=== PATIENT | female | born 1935 | race Asian ===

== ENCOUNTER 2016-10-23 20:47 | Inpatient (IN) | payer MEDICARE, OTHER ==
[~2016-10-23] VITALS: Ht 157.5 cm; Wt 40.8 kg
[~2016-10-23 20:47] MED LIST: ACET-868 PO; ARGI1POW13 PO; ASCO500T8 PO; ASPI81TA2 PO; BENEFIBER PO; BISA10SU8 RC; CALC-34 PO; CARV3.12 PO; CHOL100044 PO; MAGN400O6 PO; METH1TAB30 PO; METH5TAB6 PO; NA P133E RC; OMEP10CA4 PO; SIMV20TA6 PO
--- NOTE | 2016-10-23 20:55 | NUR ---
TO BED 7 AN 81 YO FEMALE PT [facility], PT FROM [facility], PT SENT HERE FOR FAILURE TO THRIVE. PER EMS PATIENT HAS NOT BEEN EATING, NO APPETITE. UPON ARRIVAL TO ER, PATIENT IS NONVERBAL, DOES NOT OPEN EYES, DOES NOT FOLLOW COMMANDS, WITHDRAWS FROM LIGHT PAIN. SINUS TACHY ON THE MONITOR AT 110-120'S. WITH SHEPARD CATH DRAINING SMALL AMOUT OF CLOUDY URINE. AFEBRILE. GOWNED. COMFORT AND SAFETY MEASURES INITIATED. AWAITING FOR ER MD GONSALES.
--- NOTE | 2016-10-23 20:56 | NUR ---
DR LEWIS AT BEDSIDE FOR EVAL.
--- NOTE | 2016-10-23 20:59 | NUR ---
HOUSING PROJECT MANAGER AT BEDSIDE FOR CXR.
[2016-10-23] MEDS ORDERED: IV NS 0.9% 500 ML BAG IV ONE (21:00)
--- NOTE | 2016-10-23 21:00 | NUR ---
PER DR JOSHUA ROLLE TO INSERT IV ACCESS ON THE LOWER EXTREMITY THUS STARTED A SALINE LOCK ON THE RIGHT ANKLE G18, BLOOD DRAWN AND SENT TO LAB.
[2016-10-23 21:11] LABS: BASOPHILS # (AUTO) 0.1 /CMM (0.0-0.2); BASOPHILS % (AUTO) 0.5 % (0.0-2.0); EOSINOPHILS % (AUTO) 0.2 % (0.0-6.0); HEMATOCRIT 41 % (33-45); HEMOGLOBIN 12.7 g/dL (11.5-14.8); LYMPHOCYTES # (AUTO) 2.6 /CMM (0.8-4.8); LYMPHOCYTES % (AUTO) 18.1 % (20.0-44.0); MEAN CORPUSCULAR HEMOGLOBIN 27 PG (26.0-33.0); MEAN CORPUSCULAR HGB CONC 31 g/dl (31.0-36.0); MEAN CORPUSCULAR VOLUME 86 fL (82-100); MONOCYTES # (AUTO) 1.1 /CMM (0.1-1.30); MONOCYTES % (AUTO) 7.6 % (2.0-12.0); NEUTROPHILS # (AUTO) 10.6 /CMM (1.8-8.9); NEUTROPHILS % (AUTO) 73.6 % (43.0-81.0); PLATELET COUNT (AUTO) 302 /CMM (150-450); RDW COEFFICIENT OF VARIATION 15.7 (11.5-15.0); RED BLOOD CELL COUNT(AUTO) 4.72 MIL/uL (4.0-5.2); WHITE BLOOD COUNT (AUTO) 14.4 K/uL (4.3-11.0)
--- NOTE | 2016-10-23 21:14 | NUR ---
PATIENT ASSIGNED TO MS [id number]
[2016-10-23 21:17] LABS: APPEARANCE,URINE Cloudy (CLEAR); BILIRUBIN,URINE Negative (NEGATIVE); BLOOD, URINE Large Ery/uL (NEGATIVE); COLOR,URINE Dark (YELLOW); KETONES,URINE Negative (NEGATIVE); LEUKOCYTE ESTERASE ,URINE Large (NEGATIVE); NITRITE, URINE Negative (NEGATIVE); PROTEIN,URINE >=300 mg/dl (NEGATIVE); UGLUCOSE Negative (NEGATIVE); UROBILINOGEN,URINE 0.2 EU/dL (0.2)
[2016-10-23 21:25] LABS: ALANINE AMINOTRANSFERASE 20 U/L (12-78); ALKALINE PHOSPHATASE 65 U/L (46-116); ASPARTATE AMINOTRANSFERASE 20 U/L (15-37); BILIRUBIN,DIRECT 0.1 mg/dL (0.0-0.2); BILIRUBIN,TOTAL 0.4 mg/dL (0.2-1.0); CALCIUM, SERUM 9.3 mg/dL (8.5-10.1); CARBON DIOXIDE 25 mmol/L (21-32); CHLORIDE 124 mmol/L (98-107); CREATININE 1.3 mg/dL (0.6-1.3); GLUCOSE 153 mg/dL (74-106); LIPASE 144 U/L (73-393); TOTAL PROTEIN, SERUM 9.8 g/dL (6.4-8.2); UREA NITROGEN, BLOOD 79 mg/dL (7-18)
[2016-10-23 21:26] LABS: SERUM AMMONIA 25 umol/L (11-32)
[2016-10-23 21:28] LABS: SODIUM SERUM 158 mmol/L (136-145)
[2016-10-23 21:31] LABS: BACTERIA,URINE 3+ /HPF (None Seen); RBC,URINE TOO NUMEROUS TO COUN /HPF (0-2); SQUAMOUS EPITHELIAL CELL,UR Few /HPF (None Seen); WBC,URINE TOO NUMEROUS TO COUN /HPF (0-3)
--- NOTE | 2016-10-23 21:51 | NUR ---
[facility] PAGED, FUNMI PLEITEZ CERTIFIED SOLID WASTE FACILITY OPERATOR
[2016-10-23] MEDS ORDERED: AZTREONAM 1 G VIAL ONE (21:53)
[2016-10-23] MEDS ORDERED: AMLO5TAB2 PO (21:58)
[2016-10-23] MEDS ORDERED: ATOR20TA PO (21:58)
[2016-10-23] MEDS ORDERED: AZTREONAM 1 G in IV NS 0.9% 100 ML IV ONE (22:00)
--- NOTE | 2016-10-23 22:00 | NUR ---
Report given to Arina VILLA for MS admission and bud.
--- NOTE | 2016-10-23 22:17 | NUR ---
Transported patient to [facility] floor rm [id number], no incident. Daughter at bedside while patient in er.
[2016-10-23] MEDS ORDERED: IV D5W 1,000 ML IV PRN (22:48)
[2016-10-23] MEDS ORDERED: ACETAMINOPHEN 325 MG TABLET PO PRN (23:00)
[2016-10-23] MEDS ORDERED: ONDANSETRON HCL/PF 4 MG/2 ML VIAL IVP PRN (23:00)
[2016-10-23] MEDS ORDERED: MAGNESIUM HYDROXIDE 30 ML UDC PO PRN ×2 (23:00→23:30)
[2016-10-23] MEDS ORDERED: MAG HYDROX/AL HYDROX/SIMETH 30 ML UDC PO PRN (23:00)
[2016-10-23 23:30] VITALS: BP 128/72
[2016-10-23] MEDS ORDERED: NA PHOS,M-B/NA PHOS,DI-BA 1 EA ENEMA RC PRN (23:30)
[2016-10-23] MEDS ORDERED: BISACODYL SUPP (10 MG) 10 MG/SUPP.RECT SUPP.RECT RC PRN (23:30)
[2016-10-24] MEDS ORDERED: AZTREONAM 1 G VIAL ONE (04:04)
[2016-10-24] MEDS ORDERED: AZTREONAM 1 G VIAL IM SCH (06:00)
--- NOTE | 2016-10-24 06:30 | NUR ---
MS/RN NOTES PATIENT IN STABLE CONDITION. NO APPARENT DISTRESS NOTED. VITAL SIGNS STABLE. ADMINISTERED ALL MEDS ORDERED. WITH IVF INFUSING WELL. ALL NEEDS ATTENDED. WILL CONTINUE PLAN OF CARE,
[2016-10-24 06:51] LABS: HEMATOCRIT 42 % (33-45); LYMPHOCYTES # (AUTO) 1.6 /CMM (0.8-4.8); LYMPHOCYTES % (AUTO) 10.9 % (20.0-44.0); MEAN CORPUSCULAR HEMOGLOBIN 28 PG (26.0-33.0); MEAN CORPUSCULAR HGB CONC 31 g/dl (31.0-36.0); MEAN CORPUSCULAR VOLUME 89 fL (82-100); MONOCYTES # (AUTO) 0.3 /CMM (0.1-1.30); MONOCYTES % (AUTO) 2.2 % (2.0-12.0); NEUTROPHILS # (AUTO) 12.8 /CMM (1.8-8.9); NEUTROPHILS % (AUTO) 86.9 % (43.0-81.0); PLATELET COUNT (AUTO) 252 /CMM (150-450); RDW COEFFICIENT OF VARIATION 17.1 (11.5-15.0); RED BLOOD CELL COUNT(AUTO) 4.72 MIL/uL (4.0-5.2); WHITE BLOOD COUNT (AUTO) 14.7 K/uL (4.3-11.0)
[2016-10-24 07:05] LABS: CALCIUM, SERUM 8.5 mg/dL (8.5-10.1); CARBON DIOXIDE 22 mmol/L (21-32); CHLORIDE 122 mmol/L (98-107); GLUCOSE 231 mg/dL (74-106); PHOSPHORUS 3.6 mg/dL (2.5-4.9); POTASSIUM 5.1 mmol/L (3.5-5.1); UREA NITROGEN, BLOOD 68 mg/dL (7-18)
--- NOTE | 2016-10-24 07:40 | NUR ---
RN MS OPENING NOTES RECEIVED PATIENT IN BED, ASLEEP, HOB ELEVATED, NO SOB OR DISTRESS NOTED. A/O X 1 NON VERBAL. IV INTACT AND PATENT. PATIENT ON O2 3 LPM NC AND TOLERATED WELL. KEEP PATIENT CLEAN AND COMFORTABLE IN BED, CALL LIGHT WITHIN PATIENT REACH, WILL CONTINUE TO MONITOR ACCORDINGLY.
[2016-10-24 08:00] VITALS: BP 150/48
[2016-10-24] MEDS: PANTOPRAZOLE 40 MG TABLET.DR PO SCH (08:34)
[2016-10-24 08:47] LABS: SODIUM SERUM 157 mmol/L (136-145)
[2016-10-24] MEDS: CARVEDILOL 3.125 MG TABLET PO SCH ×2 (09:00→20:34)
[2016-10-24] MEDS: ATORVASTATIN 10 MG TABLET PO SCH (09:00)
[2016-10-24] MEDS: BENEFIBER 4 GM 1 EA PACKET PO SCH ×3 (09:00→17:00)
[2016-10-24] MEDS: ASPIRIN 81 MG TAB.CHEW PO SCH (09:00)
[2016-10-24] MEDS: ASCORBIC ACID 500 MG TABLET PO SCH ×2 (09:00→17:00)
[2016-10-24] MEDS: AMLODIPINE BESYLATE 5 MG TABLET PO SCH (09:00)
[2016-10-24] MEDS: CHOLECALCIFEROL 1,000 UNIT TABLET (VIT D3) PO SCH (09:00)
[2016-10-24] MEDS ORDERED: Medication Not On Formulary EA (Arginine/Ascorbate Sod/Vite AC (Arginaid Powder) 1 EACH) PO SCH (09:00)
[2016-10-24] MEDS: CALCIUM CARB 250MG /VITAMIN D 1 UDTAB PO SCH (09:00)
[2016-10-24] MEDS: METHIMAZOLE (5MG) 5 MG TABLET PO SCH (09:00)
--- NOTE | 2016-10-24 09:30 | NUR ---
RN NOTES CRITICAL LAB SODIUM WAS REPORTED TO OPAL GIBBS NP.
--- NOTE | 2016-10-24 10:45 | NUR ---
RN NOTES I CALLED [employer] TO ASK FOR SPECIAL MATTRESS.
[2016-10-24] MEDS ORDERED: FEE PK DOSING 1 MIN EA MC ONE (12:40)
[2016-10-24] MEDS: AZTREONAM 1 G in IV NS 0.9% 100 ML IV SCH ×2 (12:56→20:01)
[2016-10-24] MEDS: IV D5/0.45 NACL 1,000 ML IV PRN (12:57)
[2016-10-24] MEDS: VANCOMYCIN 500 MG in IV D5W 100 ML IV SCH (14:18)
[2016-10-24] MEDS: HYDROGEL DRESSING 90 GM TUBE TP SCH (14:19)
[2016-10-24 15:34] LABS: CHOLESTEROL 168 mg/dL (<200); HDL CHOLESTEROL 28 mg/dL (40-60); LDL 117 mg/dL (0-99); THYROID STIMULATING HORMONE 0.009 uIU/mL (0.358-3.74); TRIGLYCERIDES 156 mg/dL (30-150)
[2016-10-24 16:00] VITALS: BP 112/58
--- NOTE | 2016-10-24 16:35 | NUR ---
RN NOTES I CALLED [employer] AND SPOKE TO FIGUEROA AND SHE SAID THAT THEY DO NOT HAVE THE SPECIAL MATTRESS AT THIS MOMENT.
--- NOTE | 2016-10-24 19:38 | NUR ---
MS RN OPENING NOTES: RECEIVED PT IN BED, ASLEEP, WITH HOB ELEVATED. PT IS NONVERBAL AND IS ON 3LPM VIA NC AND IS TOLERATING WELL. PT IS A/OX 1. IV IS ON R ANKLE AND IS PATENT AND INTACT AND BEING INFUSED WITH D5 1/2 NS AT 100ML/HR. CALL LIGHT WITHIN PT'S REACH. BED KEPT IN LOW, LOCKED POSITION, AND SIDE RAILS X 2 UP. WILL CONTINUE TO MONITOR PT.
--- NOTE | 2016-10-24 19:38 | NUR ---
RN NOTES ALL NEEDS PROVIDED, ATTENDED, AND ANTICIPATED. KEPT PATIENT CLEAN AND COMFORTABLE IN BED. CALL LIGHT WITHIN PATIENT REACH, WILL CONTINUE TO MONITOR ACCORDINGLY. ENDORSED TO NEXT SHIFT RN TO CONTINUE CARE.
[2016-10-24 20:00] VITALS: BP 134/65
[2016-10-24] MEDS ORDERED: SIMVASTATIN 20 MG TABLET PO SCH (22:00)
[2016-10-25] MEDS: VANCOMYCIN 500 MG in IV D5W 100 ML IV SCH ×2 (00:28→13:51)
[2016-10-25] MEDS: IV D5/0.45 NACL 1,000 ML IV PRN (02:59)
[2016-10-25] MEDS: AZTREONAM 1 G in IV NS 0.9% 100 ML IV SCH ×3 (04:00→21:14)
--- NOTE | 2016-10-25 06:38 | NUR ---
MS RN NOTES: DENTAL EQUIPMENT TECHNICIAN SAID SHE HAD TROUBLE OBTAINING BLOOD FROM PT D/T PT BEING HARDSTICK. SHE SAID SHE WILL TRY AGAIN LATER.
--- NOTE | 2016-10-25 06:45 | NUR ---
MS ALLEN CLOSING NOTES: ALL NEEDS WERE ATTENDED AND ANTICIPATED FOR. PT IS IN BED WITH EYES OPEN AND IS NON-VERBAL AT TIMES. HOWEVER, WHEN SPOKEN TO IN TAGALOG, SHE WILL SPEAK BACK IN GARBLED TAGALOG. HOB ELEVATED. PT IS ON 3LPM VIA NC AND IS TOLERATING WELL. IV IS ON R ANKLE AND IS PATENT AND INTACT AND IS BEING INFUSED WITH D5 1/2 NS AT 100ML/HR. CALL LIGHT WITHIN PT'S REACH. BED KEPT IN LOW, LOCKED POSITION, AND SIDE RAILS X 2 UP. WILL ENDORSE TO AM NURSE FOR FILIPE. Addendum: 10/25/16 at 0648 by BRENT GONZÁLES RN SHEPARD CATH ATTACHED TO DRAINAGE BAG. SHEPARD OUTPUT WAS 300ML.
[2016-10-25 07:06] LABS: URINE SODIUM, RANDOM 7 mmol/l (40-220)
--- NOTE | 2016-10-25 07:15 | NUR ---
MS RN OPENING NOTES RECEIVED PT. FROM NIGHTSHIFT NURSE IN STABLE CONDITION. PT. IS A/O X1. PT. OPENS EYES SPONTANEOUSLY AND IS RESPONSIVE TO TOUCH. NO SOB OR SIGNS OF DISTRESS NOTED. BREATHING IS EVEN AND UNLABORED. IV PRESENT ON RIGHT ANKLE 18G INFUSING D5 1/2 NS @ 100ML/HR. PT. IS TOLERATING INFUSION WELL. NO REDNESS OR SIGNS OF INFILTRATION NOTED. TO SITE. SHEPARD CATHETER PRESENT , INTACT, AND CLEAN RAINING CLEAR YELLOW URINE. NPO STATUS MAINTAINED PER SPEECH THERAPIST ADVICE/CONSULTATION. BED IN LOW LOCKED POSITION, SIDE RAILS UP X3, CALL LIGHT WITHIN REACH. HOB ELEVATED AND LOCKED. WILL CONTINUE TO MONITOR.
[2016-10-25] MEDS: PANTOPRAZOLE 40 MG TABLET.DR PO SCH (07:30)
[2016-10-25 07:49] LABS: BASOPHILS % (AUTO) 0.1 % (0.0-2.0); EOSINOPHILS # (AUTO) 0.9 /CMM (0.0-0.7); EOSINOPHILS % (AUTO) 4.1 % (0.0-6.0); HEMATOCRIT 34 % (33-45); HEMOGLOBIN 10.6 g/dL (11.5-14.8); LYMPHOCYTES # (AUTO) 1.8 /CMM (0.8-4.8); LYMPHOCYTES % (AUTO) 8.6 % (20.0-44.0); MEAN CORPUSCULAR HEMOGLOBIN 28 PG (26.0-33.0); MEAN CORPUSCULAR HGB CONC 32 g/dl (31.0-36.0); MEAN CORPUSCULAR VOLUME 88 fL (82-100); MONOCYTES # (AUTO) 0.7 /CMM (0.1-1.30); MONOCYTES % (AUTO) 3.3 % (2.0-12.0); NEUTROPHILS # (AUTO) 17.9 /CMM (1.8-8.9); NEUTROPHILS % (AUTO) 83.9 % (43.0-81.0); PLATELET COUNT (AUTO) 195 /CMM (150-450); RED BLOOD CELL COUNT(AUTO) 3.81 MIL/uL (4.0-5.2); WHITE BLOOD COUNT (AUTO) 21.4 K/uL (4.3-11.0)
[2016-10-25 08:00] VITALS: BP_SYST 126; BP_DIAS 57; BP_DIAS 76
[2016-10-25 08:06] LABS: CALCIUM, SERUM 7.9 mg/dL (8.5-10.1); CARBON DIOXIDE 24 mmol/L (21-32); CHLORIDE 125 mmol/L (98-107); CREATININE 0.8 mg/dL (0.6-1.3); GLUCOSE 145 mg/dL (74-106); POTASSIUM 3.6 mmol/L (3.5-5.1); UREA NITROGEN, BLOOD 40 mg/dL (7-18)
[2016-10-25 08:25] LABS: SODIUM SERUM 160 mmol/L (136-145)
[2016-10-25] MEDS: BENEFIBER 4 GM 1 EA PACKET PO SCH ×2 (08:36→13:51)
[2016-10-25] MEDS: CARVEDILOL 3.125 MG TABLET PO SCH (08:36)
[2016-10-25] MEDS: ASPIRIN 81 MG TAB.CHEW PO SCH (08:36)
[2016-10-25] MEDS: ATORVASTATIN 10 MG TABLET PO SCH (08:36)
[2016-10-25] MEDS: ASCORBIC ACID 500 MG TABLET PO SCH (08:37)
[2016-10-25] MEDS: AMLODIPINE BESYLATE 5 MG TABLET PO SCH (08:37)
[2016-10-25] MEDS: CALCIUM CARB 250MG /VITAMIN D 1 UDTAB PO SCH (08:37)
[2016-10-25] MEDS: METHIMAZOLE (5MG) 5 MG TABLET PO SCH (08:37)
[2016-10-25] MEDS: CHOLECALCIFEROL 1,000 UNIT TABLET (VIT D3) PO SCH (08:38)
--- NOTE | 2016-10-25 08:40 | NUR ---
MS RN NOTES PT HAS A CRITICALLY HIGH SODIUM OF 160. OPAL THE IMPLEMENTATION COORDINATOR MADE AWARE. NO NEW ORDERS OF YET. WILL CONTINUE TO MONITOR PT. FOR S/S OF HYPERNATREMIA
[2016-10-25 09:04] LABS: BAND % (MANUAL) 7 % (0.0-5.0); EOSINOPHILS % (MANUAL) 3 % (0-4); LYMPHOCYTES % (MANUAL) 1 % (16-48); MONOCYTES % (MANUAL) 1 % (0-11.0); NEUTROPHILS % (MANUAL) 88 (42-76)
--- NOTE | 2016-10-25 09:09 | NUR ---
MS RN NOTES PT. TAKEN DOWN FOR HEAD CT WITHOUT CONTRAST
[2016-10-25 09:13] LABS: OSMOLALITY,URINE 475 mOS/kg (340-1090)
--- NOTE | 2016-10-25 09:48 | NUR ---
MS RN NOTES PT. BACK FROM CT. WILL AWAIT RESULTS
[2016-10-25] MEDS: HYDROGEL DRESSING 90 GM TUBE TP SCH (09:52)
--- NOTE | 2016-10-25 10:04 | NUR ---
MS RN NOTES OPAL THE STEAM TABLE ASSOCIATE ORDERED AND NG TUBE INSERTION. DAUGHTER JAM SCHMITT WAS CALLED TO CONSENT TO INSERTION. PER DAUGHTER " YES, PLEASE PUT IT SINCE SHE FAILED THE SWALLOW TEST AND IT'S RECOMMENDED". WILL PUT IN ORDER AND INSERT NG TUBE.
--- NOTE | 2016-10-25 10:51 | NUR ---
MS RN NOTES NG TUBE PLACEMENT 14 F NGT PLACED WITH EASE THROUGH THE RIGHT NARES USING CLEAN TECHNIQUE PER PROTOCOL. TUBE INSERTED AT 50CM. PLACEMENT CHECKED PER AUSCULTATION BY BY MYSELF, MIGEL (RN), AND OPAL THE PARTY PLANNER WITH 30CC OF AIR. PT. TOLERATED PROCEDURE WELL. STAT CHEST XR ORDERED TO CONFIRM PLACEMENT.
[2016-10-25] MEDS: IV D5W 1,000 ML IV PRN (12:14)
[2016-10-25] MEDS ORDERED: PHARMACY TO CHANGE PO MEDS TO GT/NG XX PRN (13:30)
[2016-10-25] MEDS ORDERED: MAG HYDROX/AL HYDROX/SIMETH 30 ML UDC NG PRN (14:04)
[2016-10-25] MEDS ORDERED: MAGNESIUM HYDROXIDE 30 ML UDC NG PRN ×2 (14:05)
[2016-10-25] MEDS ORDERED: ACETAMINOPHEN LIQUID 325 MG/10.1 ML UDC NG PRN (14:30)
[2016-10-25] MEDS ORDERED: ACETAMINOPHEN LIQUID 325 MG/10.1 ML UDC PO PRN (14:30)
--- NOTE | 2016-10-25 14:37 | NUR ---
MS RN NOTES PT'S NG TUBE WAS ADVANCED 3 MORE CM PER CHEST XR RESULT RECOMMENDATION. PLACEMENT VERIFIED BY AUSCULTATION
[2016-10-25 16:00] VITALS: BP 102/43
[2016-10-25] MEDS: ASCORBIC ACID 500 MG TABLET NG SCH (17:33)
[2016-10-25] MEDS: BENEFIBER 4 GM 1 EA PACKET NG SCH (17:33)
--- NOTE | 2016-10-25 18:57 | NUR ---
MS RN CLOSING NOTES PT REMAINS IN STABLE CONDITION. ALL NEEDS WERE MET DURING SHIFT AND ORDERS CARRIED OUT ACCORDINGLY. NG TUBE REMAIN IN PLACE. 300 CC FLUSH WAS GIVEN Q6HR ORDERED. PT. CONTINUES TO TOLERATE TUBE WELL. DIETARY WAS CALLED REGARDING CONSULT, BUT CRIME VICTIM SPECIALIST IS GONE FOR THE DAY. WILL FOLLOWUP IN AM. WOUND CARE WAS PROVIDED. PT. WAS KEPT CLEAN AND DRY ALL THROUGHOUT SHIFT. HOB REMAINED ELEVATED DURING SHIFT AND PT WAS REPOSITIONED Q 2HRS. ALL SAFETY PRECAUTIONS REMAIN IN PLACE. WILL ENDORSE TO NIGHTSHIFT NURSE FOR FILIPE
--- NOTE | 2016-10-25 19:30 | NUR ---
RN NOTES RECEIVED PT. SLEEPING BUT AROUSABLE TO TOUCH, F/C DRAINING CLEAR YELLOW URINE, NG-TUBE IN PLACE, TAGALOG SPEAKING, NOT IN DISTRESS, NO PAIN NOTED, NPO STATUS, SIDERAILS UPX2 CONTINUE TO MONITOR
[2016-10-25 20:00] VITALS: BP_SYST 125; BP_DIAS 55; BP_DIAS 60
[2016-10-25] MEDS: SIMVASTATIN 20 MG TABLET NG SCH (21:38)
[2016-10-25] MEDS: CARVEDILOL 3.125 MG TABLET NG SCH (21:38)
--- NOTE | 2016-10-25 22:00 | NUR ---
RN NOTES EVENING CARE RENDERED
[2016-10-26] MEDS: IV D5W 1,000 ML IV PRN (01:18)
[2016-10-26] MEDS: VANCOMYCIN 500 MG in IV D5W 100 ML IV SCH ×2 (01:19→20:12)
[2016-10-26] MEDS: AZTREONAM 1 G in IV NS 0.9% 100 ML IV SCH ×3 (04:59→21:26)
--- NOTE | 2016-10-26 06:53 | NUR ---
RN NOTES SLEEPING BUT AROUSABLE TO TOUCH, NOT IN DISTRESS, NG-TUBE IN PLACE, NO PAIN NOTED, MORNING CARE RENDERED, PT NEEDS ATTENDED. ENDORSED TO DAYSHIFT NURSE FOR CONTINUITY OF CARE
--- NOTE | 2016-10-26 07:15 | NUR ---
MS RN OPENING NOTES RECEIVED PT. FROM NIGHTSHIFT NURSE IN STABLE CONDITION. PT. IS A/O X1. PT. OPENS EYES SPONTANEOUSLY AND IS RESPONSIVE TO TOUCH. NO SOB OR SIGNS OF DISTRESS NOTED. BREATHING IS EVEN AND UNLABORED. IV PRESENT ON RIGHT ANKLE 18G INFUSING D5 W @ 100ML/HR. PT. IS TOLERATING INFUSION WELL. NO REDNESS OR SIGNS OF INFILTRATION NOTED. SHEPARD CATHETER PRESENT , INTACT, AND DRAINING CLEAR, YELLOW URINE. NPO STATUS MAINTAINED PER SPEECH THERAPIST ADVICE/CONSULTATION. NG TUBE INTACT. PLACEMENT VERIFIED BY AUSCULTATION. BED IN LOW LOCKED POSITION, SIDE RAILS UP X3, CALL LIGHT WITHIN REACH. HOB ELEVATED AND LOCKED. WILL CONTINUE TO MONITOR.
[2016-10-26 07:51] LABS: EOSINOPHILS # (AUTO) 0.6 /CMM (0.0-0.7); EOSINOPHILS % (AUTO) 3.1 % (0.0-6.0); HEMATOCRIT 30 % (33-45); HEMOGLOBIN 9.7 g/dL (11.5-14.8); LYMPHOCYTES # (AUTO) 2.6 /CMM (0.8-4.8); LYMPHOCYTES % (AUTO) 12.7 % (20.0-44.0); MEAN CORPUSCULAR HEMOGLOBIN 28 PG (26.0-33.0); MEAN CORPUSCULAR HGB CONC 32 g/dl (31.0-36.0); MEAN CORPUSCULAR VOLUME 86 fL (82-100); MONOCYTES # (AUTO) 0.7 /CMM (0.1-1.30); MONOCYTES % (AUTO) 3.4 % (2.0-12.0); NEUTROPHILS # (AUTO) 16.3 /CMM (1.8-8.9); NEUTROPHILS % (AUTO) 80.8 % (43.0-81.0); PLATELET COUNT (AUTO) 165 /CMM (150-450); RDW COEFFICIENT OF VARIATION 16.5 (11.5-15.0); RED BLOOD CELL COUNT(AUTO) 3.51 MIL/uL (4.0-5.2); WHITE BLOOD COUNT (AUTO) 20.2 K/uL (4.3-11.0)
[2016-10-26 07:59] LABS: CALCIUM, SERUM 7.3 mg/dL (8.5-10.1); CARBON DIOXIDE 23 mmol/L (21-32); CHLORIDE 113 mmol/L (98-107); CREATININE 0.6 mg/dL (0.6-1.3); GLUCOSE 107 mg/dL (74-106); POTASSIUM 3.6 mmol/L (3.5-5.1); SODIUM SERUM 146 mmol/L (136-145); UREA NITROGEN, BLOOD 18 mg/dL (7-18)
[2016-10-26 08:00] VITALS: BP_SYST 111; BP_SYST 115; BP_DIAS 50; BP_DIAS 57
[2016-10-26] MEDS: CALCIUM CARB 250MG /VITAMIN D 1 UDTAB NG SCH (09:09)
[2016-10-26] MEDS: BENEFIBER 4 GM 1 EA PACKET NG SCH ×3 (09:09→17:01)
[2016-10-26] MEDS: HYDROGEL DRESSING 90 GM TUBE TP SCH (09:09)
[2016-10-26] MEDS: ASPIRIN 81 MG TAB.CHEW NG SCH (09:10)
[2016-10-26] MEDS: AMLODIPINE BESYLATE 5 MG TABLET NG SCH (09:10)
[2016-10-26] MEDS: CHOLECALCIFEROL 1,000 UNIT TABLET (VIT D3) NG SCH (09:10)
[2016-10-26] MEDS: ASCORBIC ACID 500 MG TABLET NG SCH ×2 (09:10→17:01)
[2016-10-26] MEDS: ATORVASTATIN 10 MG TABLET NG SCH (09:11)
[2016-10-26] MEDS: METHIMAZOLE (5MG) 5 MG TABLET NG SCH (09:11)
[2016-10-26] MEDS: CARVEDILOL 3.125 MG TABLET NG SCH ×2 (09:12→21:00)
[2016-10-26 09:38] LABS: BAND % (MANUAL) 2 % (0.0-5.0); EOSINOPHILS % (MANUAL) 9 % (0-4); LYMPHOCYTES % (MANUAL) 1 % (16-48); MONOCYTES % (MANUAL) 2 % (0-11.0); NEUTROPHILS % (MANUAL) 86 (42-76)
[2016-10-26] MEDS ORDERED: METHENAMINE HIPPURATE 1 GM PO SCH (10:00)
[2016-10-26] MEDS ORDERED: FIBERSOURCE HN 1,000 ML BOTTLE GT PRN (10:30)
[2016-10-26 16:00] VITALS: BP 91/37
--- NOTE | 2016-10-26 19:01 | NUR ---
MS RN CLOSING NOTES PT REMAINS IN STABLE CONDITION. ALL NEEDS WERE MET DURING SHIFT AND ORDERS CARRIED OUT ACCORDINGLY. NG TUBE REMAIN IN PLACE. TUBE FEEDING RUNNING AT ORDERED DOSE. PT. TOLERATING FEEDING WELL. 300 CC FLUSH WAS GIVEN Q6HR ORDERED. WOUND CARE WAS PROVIDED. PT. WAS KEPT CLEAN AND DRY ALL THROUGHOUT SHIFT. HOB REMAINED ELEVATED AT ALL TIMES DURING SHIFT AND PT WAS REPOSITIONED Q 2HRS. ALL SAFETY PRECAUTIONS REMAIN IN PLACE. WILL ENDORSE TO NIGHTSHIFT NURSE FOR FILIPE
--- NOTE | 2016-10-26 19:10 | NUR ---
MS RN NOTES PHARMACY CALLED EARLIER REGARDING PT.'S HOME MEDICATION METHENAMINE. WE DO NOT HAVE IT HERE. FAMILY WAS MADE AWARE WHEN THEY CAME TO VISIT AND SAID THAT THEY WILL FOLLOW UP WITH IT AND BRING IT IF THEY FIND IT.
--- NOTE | 2016-10-26 19:30 | NUR ---
RN NOTE; RECEIVED PT IN BED ASLEEP. RESPONSIVE TO TOUCH AND PAIN. BREATHING EVENLY. NO SOB,. NO DISTRESS. NO S/S OF PAIN OR DISCOMFORT. NGT IN PLACE.GTF LI WELL. HOB ELEVATED. F/BRYANT PLACE DRAINING CLEAR YELLOW URINE. NEEDS ATTENDED. CALL LIGHT WITHIN REACH. WILL CONT TO MONITOR
[2016-10-26 20:00] VITALS: BP 104/46
[2016-10-26] MEDS: SIMVASTATIN 20 MG TABLET NG SCH (21:27)
[2016-10-26] MEDS: GLYTROL 1,000 ML BAG GT PRN (21:27)
[2016-10-27] MEDS: AZTREONAM 1 G in IV NS 0.9% 100 ML IV SCH ×3 (04:15→21:08)
--- NOTE | 2016-10-27 06:21 | NUR ---
RN NOTE; PT IN BED SLEEPING, RESPONDING TO PAIN. BREATHING EVENLY. NO SOB. NAD. SKIN WARM AND DRY. NO ACUTE EVENT DURING THE NIGHT. REMAINED STABLE. NO S/S OF PAIN OR DISCOMFORT. GLYTROL TUBE FEEDING TOLERATED WELL W/ HOB ELEVATED. NEEDS ATTENDED. GOOD SKIN CARE AND WOUND TX RENDERED. REPOSITIONED ROUTINELY. CLEANED AND DRIED. CALL LIGHT WITHIN REACH. WILL CONT TO MONITOR AND WILL ENDORSE TO AM SHIFT FOR FILIPE.
[2016-10-27] MEDS: PANTOPRAZOLE 40 MG/PACK PACK NG SCH (06:43)
--- NOTE | 2016-10-27 06:49 | NUR ---
MOM GIVEN VIA NGT ORDERED FOR NO RECORD OF BM FOR THE PAST DAYS. WILL ENDORSE TO DAY SHIFT TO F/U
[2016-10-27 07:28] LABS: CALCIUM, SERUM 6.9 mg/dL (8.5-10.1); CARBON DIOXIDE 25 mmol/L (21-32); CHLORIDE 111 mmol/L (98-107); CREATININE 0.5 mg/dL (0.6-1.3); GLUCOSE 146 mg/dL (74-106); POTASSIUM 3.3 mmol/L (3.5-5.1); SODIUM SERUM 144 mmol/L (136-145); UREA NITROGEN, BLOOD 12 mg/dL (7-18)
[2016-10-27 07:29] LABS: EOSINOPHILS # (AUTO) 0.6 /CMM (0.0-0.7); EOSINOPHILS % (AUTO) 3.2 % (0.0-6.0); HEMATOCRIT 27 % (33-45); LYMPHOCYTES # (AUTO) 2.2 /CMM (0.8-4.8); LYMPHOCYTES % (AUTO) 12.6 % (20.0-44.0); MEAN CORPUSCULAR HEMOGLOBIN 28 PG (26.0-33.0); MEAN CORPUSCULAR HGB CONC 33 g/dl (31.0-36.0); MEAN CORPUSCULAR VOLUME 86 fL (82-100); MONOCYTES # (AUTO) 0.8 /CMM (0.1-1.30); MONOCYTES % (AUTO) 4.7 % (2.0-12.0); NEUTROPHILS # (AUTO) 14.2 /CMM (1.8-8.9); NEUTROPHILS % (AUTO) 79.5 % (43.0-81.0); PLATELET COUNT (AUTO) 162 /CMM (150-450); RDW COEFFICIENT OF VARIATION 16.4 (11.5-15.0); RED BLOOD CELL COUNT(AUTO) 3.19 MIL/uL (4.0-5.2); WHITE BLOOD COUNT (AUTO) 17.8 K/uL (4.3-11.0)
--- NOTE | 2016-10-27 07:45 | NUR ---
MS RN RECEIVED A REPORT ON THE PATIENT FROM THE SKEIN WINDING OPERATOR NURSE. PATIENT IS RESTING IN BED. NON-RESPONSIVE TO VERBAL COMMUNICATION, RESPONSIVE TO PAINFUL STIMULI. F/C W/O S/S OF INFECTION W 200ML OF CLEAR STRAW COLORED URINE. PRESENTS WITH SACRAL STAGE IV PRESSURE ULCER. RECEIVES CONTINUES FEEDING VIA PATENT R/NARE NG TUBE AT A RATE OF 60ML/HR WITH RESIDUAL OF 10ML UPON ASSESSMENT . TUBE MEASUREMENT 49CM MARKED AT R/NARE. GANESH IV PATENT. PATIENT ON 2L O2 VIA NASAL CANNULA. TOLERATES WELL. PRESENTS WITH NON-LABORED EVEN BREATHING. CHEST RISING EQUALLY BILATERALLY. PATIENT IS STABLE. PATIENT REPOSITIONS FOR COMFORT. WILL ROUND AND REPOSITION Q 2 H.
[2016-10-27 08:00] VITALS: BP 111/46
[2016-10-27] MEDS: AMLODIPINE BESYLATE 5 MG TABLET NG SCH (09:00)
[2016-10-27] MEDS: CARVEDILOL 3.125 MG TABLET NG SCH ×2 (09:00→21:08)
[2016-10-27] MEDS: BENEFIBER 4 GM 1 EA PACKET NG SCH ×3 (09:27→17:09)
[2016-10-27] MEDS: ASPIRIN 81 MG TAB.CHEW NG SCH (09:28)
[2016-10-27] MEDS: ASCORBIC ACID 500 MG TABLET NG SCH ×2 (09:28→17:09)
[2016-10-27] MEDS: Z GUARD REMEDY 2 OZ OINT TP PRN ×2 (09:28→17:10)
[2016-10-27] MEDS: CALCIUM CARB 250MG /VITAMIN D 1 UDTAB NG SCH (09:28)
[2016-10-27] MEDS: METHIMAZOLE (5MG) 5 MG TABLET NG SCH (09:28)
[2016-10-27] MEDS: ATORVASTATIN 10 MG TABLET NG SCH (09:28)
[2016-10-27] MEDS: CHOLECALCIFEROL 1,000 UNIT TABLET (VIT D3) NG SCH (09:28)
[2016-10-27] MEDS: HYDROGEL DRESSING 90 GM TUBE TP SCH (09:31)
[2016-10-27] MEDS: GLYTROL 1,000 ML BAG GT PRN (09:55)
[2016-10-27] MEDS ORDERED: POTASSIUM CHLORIDE 20 MEQ POWDER PACKET GT ONE (10:45)
--- NOTE | 2016-10-27 11:13 | NUR ---
MS RN PER OPAL SAI ORDER/DIRECTION CHANGED ORDER OF 300CC FLUSH Q 6 H TO 100CC FLUSH Q 6H.
--- NOTE | 2016-10-27 13:03 | NUR ---
MS ALLEN ST AT THE BEDSIDE OFFERED ORAL FLUIDS/APPLE SAUCE TO PATIENT. PATIENT WAS ABLE TO TOLERATE ORAL INTAKE WELL. WILL DISCUSS/REPORT TO OPAL BAILER OPERATORS SUPERVISOR FOR FURTHER INSTRUCTIONS.
[2016-10-27] MEDS: VANCOMYCIN 500 MG in IV D5W 100 ML IV SCH (14:55)
[2016-10-27 16:00] VITALS: BP 104/44
--- NOTE | 2016-10-27 19:30 | NUR ---
MS RN OPENING NOTES: PATIENT IN BED, NON VERBAL, BUT EYES OPEN SPONTANEOUSLY TO TOUCH. ON O2 AT 2 LPM VIA NC , BREATHING EVEN AND UNLABORED. NGT PLACED OVER R NARE, AT 54 PABLO, WITH CONTINUOUS TUBE FEEDING OF GLYTROL RUNNING AT 60 ML/HR. UPPER EXTREMITIES NOTED TO BE IN ABNORMAL FLEXION. GANESH MIDLINE INTACT AND PATENT TO FLUSH. SHEPARD CATHETER IN PLACE DRAINING CLEAR YELLOW URINE. PROVIDED FOR COMFORT AND SAFETY. HOB MAINTAINED IN ELEVATED POSITION. SIDERAILS UP X3. WILL CONT TO MONITOR.
--- NOTE | 2016-10-27 19:38 | NUR ---
MS RN CLOSING PATIENT STABLE. NO COMPLICATIONS. EYES OPENING TO VERBAL STIMULI AT THIS TIME. TUBE FEEDING ORDERED; TOLERATING WELL NO COMPLICATIONS. ALL DUE MEDS GIVEN AND ALL NEEDS MET. PATIENT TURNED Q2H AND HEELS AND ELBOWS OFFLOADED. FAMILY AND DAUGHTER UPDATED ON PATIENT CONDITION AND MD PLAN. ALL NEEDS IN REACH, PATIENT IN POSITION OF COMFORT. AND CARE ENDORSED TO RN FOR FILIPE.
[2016-10-27 20:00] VITALS: BP 125/57
[2016-10-27] MEDS: SIMVASTATIN 20 MG TABLET NG SCH (21:09)
--- NOTE | 2016-10-27 21:25 | NUR ---
RN NOTES NOTED ONLY 10 ML RESIDUAL FROM NGT. HR 106, BP 125/57, ADMINISTERED SCHEDULED CARVEDILOL AT PRE NGT.
[2016-10-28 03:17] VITALS: BP 123/46
[2016-10-28] MEDS: GLYTROL 1,000 ML BAG GT PRN ×2 (03:20→21:17)
--- NOTE | 2016-10-28 03:50 | NUR ---
RN NOTES: WHILE MORNING CARE WAS BEING RENDERED, PATIENT SPOKE IN TAGALOG. PATIENT WAS ABLE TO SAY HER NAME, AND WHERE SHE WAS FROM (VAGUELY ANSWERED "[facility]"), AND WHEN ASKED IF SHE HAS ANY PAIN, SHE SAID NONE.
[2016-10-28] MEDS: AZTREONAM 1 G in IV NS 0.9% 100 ML IV SCH ×3 (04:57→21:15)
--- NOTE | 2016-10-28 06:21 | NUR ---
MS RN CLOSING NOTES: PATIENT IN BED, ASLEEP BUT AWAKENS TO TOUCH, ON O2 AT 2 LPM VIA NC, WITH O2 SAT AT 98%. APPEARS CALM AND IN NO DISTRESS. BREATHING EVEN AND UNLABORED. ON NGT FEEDING OF GLYTROL AT 60 ML/HR. PATIENT ABLE TO TOLERATE FEEDING WELL, RESIDUAL CHECKED VARIOUS TIMES THROUGH THE SHIFT, LESS THAN 10 ML. GANESH MIDLINE INTACT AND PATENT TO FLUSH. SHEPARD CATHETER IN PLACE DRAINING CLEAR YELLOW URINE. PROVIDED FOR COMFORT AND SAFETY. DUE MEDS GIVEN. MORNING CARE RENDERED. WOUND CARE DONE OVER SACRAL DECUBITUS ULCER. TURNED AND REPOSITIONED. PROVIDED FOR COMFORT AND SAFETY. NO ACUTE CHANGE IN CONDITION NOTED THROUGH SHIFT. WILL ENDORSE TO AM RN FOR FILIPE.
[2016-10-28] MEDS: PANTOPRAZOLE 40 MG/PACK PACK NG SCH (06:38)
--- NOTE | 2016-10-28 07:15 | NUR ---
MS RN OPENING NOTE RECEIVED REPORT ON PATIENT. PATIENT IS IN BED, DEN IN LOW POSITION, SIDE RAILS UP, IN SEMI-BARRETT'S POSITION. PATIENT PRESENTS WITH IMPROVED MENTAL STATUS. A/O X2, RESPONDS TO VERBAL COMMUNICATION. WAS ABLE TO STATE OWN NAME, AND REPORT PAIN IN ARMS. PATIENT'S SPO2 OF 99% ON 2L. WILL TRY TO WEAN PATIENT OFF OXYGEN AND SEE IF SHE CAN TOLERATE IT. PATIENT TOLERATES TUBE FEEDING WELL. TUBE MARKING AT 49CM IN R/NARE.
[2016-10-28 07:48] LABS: CALCIUM, SERUM 6.8 mg/dL (8.5-10.1); CARBON DIOXIDE 25 mmol/L (21-32); CHLORIDE 111 mmol/L (98-107); CREATININE 0.5 mg/dL (0.6-1.3); GLUCOSE 150 mg/dL (74-106); POTASSIUM 3.6 mmol/L (3.5-5.1); SODIUM SERUM 144 mmol/L (136-145); UREA NITROGEN, BLOOD 11 mg/dL (7-18)
[2016-10-28 08:00] VITALS: BP 110/69
[2016-10-28] MEDS: ASCORBIC ACID 500 MG TABLET NG SCH ×2 (08:50→16:06)
[2016-10-28] MEDS: ASPIRIN 81 MG TAB.CHEW NG SCH (08:51)
[2016-10-28] MEDS: CALCIUM CARB 250MG /VITAMIN D 1 UDTAB NG SCH (08:51)
[2016-10-28] MEDS: BENEFIBER 4 GM 1 EA PACKET NG SCH ×3 (08:51→16:06)
[2016-10-28] MEDS: CHOLECALCIFEROL 1,000 UNIT TABLET (VIT D3) NG SCH (08:51)
[2016-10-28] MEDS: HYDROGEL DRESSING 90 GM TUBE TP SCH (08:52)
[2016-10-28] MEDS: Z GUARD REMEDY 2 OZ OINT TP PRN ×2 (08:52→16:07)
[2016-10-28] MEDS: CARVEDILOL 3.125 MG TABLET NG SCH ×2 (08:53→21:17)
[2016-10-28] MEDS: AMLODIPINE BESYLATE 5 MG TABLET NG SCH (08:53)
[2016-10-28] MEDS: VANCOMYCIN 500 MG in IV D5W 100 ML IV SCH (08:54)
[2016-10-28] MEDS: ATORVASTATIN 10 MG TABLET NG SCH (08:54)
[2016-10-28] MEDS: METHIMAZOLE (5MG) 5 MG TABLET NG SCH (08:59)
--- NOTE | 2016-10-28 11:00 | NUR ---
MS ALLEN JOSEPH THE HR CLERK OBTAINED THE TELEPHONE CONSENT FOR PEG PLACEMENT FROM THE PATIENT'S DAUGHTER.
[2016-10-28 11:26] VITALS: BP 110/69
[2016-10-28 16:00] VITALS: BP 114/58
--- NOTE | 2016-10-28 17:00 | NUR ---
MS RN NOTES PATIENT IS WARM TO TOUCH. COOLED ROOM, REMOVED BLANKETS AND COOL WET TOWEL APPLIED TO HEAD. WILL RECHECK
--- NOTE | 2016-10-28 17:20 | NUR ---
MS RN NOTE CALLED PATIENT'S DAUGHTER CHRISSIE TO IBTAIN A CONCENT FOR A WOUND DEBRIEDMENT AND TO PROVIDE UPDATES ON POSSIBLE PEG TUBE PLACEMENT FOR TOMORROW. LEFT A MESSAGE TO CALL BACK SO. WILL FOLLOW UP.
--- NOTE | 2016-10-28 17:30 | NUR ---
MS RN NOTES TEMP IMPROVED. WILL ADD ICE FOR PATIENT AND RECHECK.
--- NOTE | 2016-10-28 17:36 | NUR ---
MS RN NOTES DR GALEAS AT BEDSIDE. UPDATED ON PATIENT CARE PLAN AND CONDITION. CONSENTED AND SIGNED FOR DEBRIDEMENT OF SACRAL WOUND.
[2016-10-28 18:32] LABS: INR 0.97 (0.87-1.13); PROTHROMBIN TIME 10.4 SECS (9.5-12.7)
--- NOTE | 2016-10-28 18:52 | NUR ---
MS RN CLOSING PATIENT STABLE. AFEBRILE AT THIS TIME. WILL ENDORSE TO RN TO CONTINUE TO MONITOR. FAMILY AND DAUGHTER EDUCATED ON NPO- HOLDING TUBE FEEDINGS AT MIDNIGHT. PATIENT TURNED Q2H AND HEELS AND ELBOWS OFFLOADED THROUGHOUT THE DAY. PATIENT NEEDS IN REACH, ALL DUE MEDS GIVEN. FEEDING RUNNING ORDERED. RAILS UPX3 FOR SAFETY, BED ALARM ON AND WILL ENDORSE TO RN FOR FILIPE
--- NOTE | 2016-10-28 19:20 | NUR ---
RN NOTES RECEIVED PT ASLEEP, HOB ELEVATED, NO SOB, NOT IN DISTRESS, ON ROOM AIR AND TOLERATED WELL.PT ALERT AND ORIENTED X1-2, DENIES PAIN AND DISCOMFORT AT THIS TIME, PT DENIES CHEST PAIN, NAUSEA AND VOMITING.WITH NGT ON RIGHT NARES PATENT AND INTACT, NO RESIDUAL NOTED WITH ONGOING GT FEEDING INFUSING WELL. BOTH UPPER AND LOWER EXTREMITY RIGID AND CONTRACTED. SHEPARD CATH INTACT WITH CLEAR URINE OUTPUT NOTED. KEPT COMFORTABLE AND ATTENDED. BED IN THE LOWEST POSITION, LOCKED, SIDE RAILS UP WITH CALL LIGHT WITH IN REACH. WILL TURN AND REPOSITION PT. WILL CONTINUE TO MONITOR PT.
[2016-10-28 20:00] VITALS: BP 149/86
[2016-10-28] MEDS: SIMVASTATIN 20 MG TABLET NG SCH (21:17)
[2016-10-28 22:00] VITALS: BP 141/59
--- NOTE | 2016-10-29 | NUR ---
RN NOTES PLACED PT ON NPO AND STOP NGT FEEDING FOR THE SCHEDULED EGD WITH PEG PLACEMENT IN AM. PT VERBALIZED UNDERSTANDING . WILL CONTINUE TO MONITOR PT.
[2016-10-29] MEDS: VANCOMYCIN 500 MG in IV D5W 100 ML IV SCH ×2 (02:01→20:55)
[2016-10-29] MEDS: AZTREONAM 1 G in IV NS 0.9% 100 ML IV SCH ×3 (05:18→21:54)
[2016-10-29] MEDS: PANTOPRAZOLE 40 MG/PACK PACK NG SCH (07:30)
--- NOTE | 2016-10-29 07:30 | NUR ---
RN NOTES PT ASLEEP, BREATHING REGULAR AND UNLABORED, ON ROOM AIR AND TOLERATED WELL. VITAL SIGNS STABLE, AFEBRILE. NO SIGNS OF PAIN AND DISCOMFORT NOTED. NO EPISODE OF NAUSEA AND VOMITING. NGT INTACT, DUE MEDS GIVEN VIA NGT AND TOLERATED WELL. KEPT PT ON NPO FOR THE EGT WITH PEG PLACEMENT TODAY. KEPT CLEAN AND DRY, TURNED AND REPOSITION SCHEDULED. SKIN CARE AND WOUND CARE DONE. ENDORSED TO MORNING RN FOR CONTINUITY OF CARE.
[2016-10-29 08:00] VITALS: BP 140/54
[2016-10-29 08:32] LABS: BASOPHILS # (AUTO) 0.1 /CMM (0.0-0.2); BASOPHILS % (AUTO) 0.4 % (0.0-2.0); EOSINOPHILS # (AUTO) 0.5 /CMM (0.0-0.7); EOSINOPHILS % (AUTO) 3.1 % (0.0-6.0); HEMATOCRIT 29 % (33-45); HEMOGLOBIN 9.6 g/dL (11.5-14.8); LYMPHOCYTES # (AUTO) 2.7 /CMM (0.8-4.8); LYMPHOCYTES % (AUTO) 15.5 % (20.0-44.0); MEAN CORPUSCULAR HEMOGLOBIN 28 PG (26.0-33.0); MEAN CORPUSCULAR HGB CONC 33 g/dl (31.0-36.0); MEAN CORPUSCULAR VOLUME 85 fL (82-100); MONOCYTES # (AUTO) 1.3 /CMM (0.1-1.30); MONOCYTES % (AUTO) 7.3 % (2.0-12.0); NEUTROPHILS # (AUTO) 12.8 /CMM (1.8-8.9); NEUTROPHILS % (AUTO) 73.7 % (43.0-81.0); PLATELET COUNT (AUTO) 225 /CMM (150-450); RDW COEFFICIENT OF VARIATION 16.5 (11.5-15.0); RED BLOOD CELL COUNT(AUTO) 3.43 MIL/uL (4.0-5.2); WHITE BLOOD COUNT (AUTO) 17.4 K/uL (4.3-11.0)
[2016-10-29] MEDS: CALCIUM CARB 250MG /VITAMIN D 1 UDTAB NG SCH (09:00)
[2016-10-29] MEDS: METHIMAZOLE (5MG) 5 MG TABLET NG SCH (09:00)
[2016-10-29] MEDS: CARVEDILOL 3.125 MG TABLET NG SCH ×2 (09:00→21:56)
[2016-10-29] MEDS: HYDROGEL DRESSING 90 GM TUBE TP SCH (09:00)
[2016-10-29] MEDS: ASCORBIC ACID 500 MG TABLET NG SCH ×2 (09:00→16:53)
[2016-10-29] MEDS: AMLODIPINE BESYLATE 5 MG TABLET NG SCH (09:00)
[2016-10-29] MEDS: ASPIRIN 81 MG TAB.CHEW NG SCH (09:00)
[2016-10-29] MEDS: BENEFIBER 4 GM 1 EA PACKET NG SCH ×3 (09:00→16:53)
[2016-10-29] MEDS: ATORVASTATIN 10 MG TABLET NG SCH (09:00)
--- NOTE | 2016-10-29 09:00 | NUR ---
MS RN NOTE PATIENT GOING DOWN TO OR FOR PEG TUBE PLACEMENT. CONSENTS OBTAINED, IN CHART. PATIENT IS STABLE, VITALS ARE STABLE. NO FACIAL GRIMACING NOTED FOR PAIN. NO SOB OR DISTRESS NOTED
--- NOTE | 2016-10-29 09:54 | NUR ---
MS RN NOTE PLEASE SEE OPENING NURSING NOTE IN PATIENT'S CHART AND MEDICATION LIST DUE TO SYSTEM DOWNTIME.
[2016-10-29] MEDS: CHOLECALCIFEROL 1,000 UNIT TABLET (VIT D3) NG SCH (10:03)
[2016-10-29 10:12] LABS: CALCIUM, SERUM 7.2 mg/dL (8.5-10.1); CARBON DIOXIDE 28 mmol/L (21-32); CHLORIDE 109 mmol/L (98-107); CREATININE 0.5 mg/dL (0.6-1.3); GLUCOSE 90 mg/dL (74-106); SODIUM SERUM 144 mmol/L (136-145); UREA NITROGEN, BLOOD 9 mg/dL (7-18)
--- NOTE | 2016-10-29 10:30 | NUR ---
MS RN NOTE PATIENT CAME BACK FROM OR. PATIENT IS STABLE. VITALS ARE STABLE. NO FACIAL GRIMACING NOTED FOR PAIN. NO SOB OR DISTRESS NOTED
[2016-10-29] MEDS ORDERED: ANESTHESIA TRAY IN PYXIS 1 EA TRAY MC ONE (12:29)
[2016-10-29 16:00] VITALS: BP 146/80
--- NOTE | 2016-10-29 18:32 | NUR ---
MS RN CLOSING NOTE PATIENT IS ALERT AND ORIENTED x1. NO FACIAL GRIMACING NOTED FOR PAIN. NO SOB OR DISTRESS NOTED. CALL LIGHT WITHIN REACH AT ALL TIMES. SAFETY MEASURES IMPLEMENTED. WOUND TREATMENT DONE. S/P PEG TUBE PLACEMENT DONE TODAY. HOLD FEEDING PER MD UNTIL TOMORROW 10/30. AWAITING DIETARY CONSULT FOR TUBE FEEDING AND RATE. MIDLINE INTACT AND PATENT NO REDNESS OR SWELLING NOTED. ALL DUE MEDICATIONS GIVEN ORDERED. WILL ENDORSE TO CAFETERIA WORKER NURSE
--- NOTE | 2016-10-29 19:20 | NUR ---
RN NOTES RECEIVED PT ASLEEP, HOB ELEVATED, BREATHING REGULAR AND UNLABORED, NO SIGNS OF DISTRESS AND DISCOMFORT NOTED. ON 2LPM O2 VIA NC WITH GOOD SATURATION. VITAL SIGNS STABLE, AFEBRILE. NO EPISODE OF NAUSEA AND VOMITING. NO SIGNS OF PAIN AND DISCOMFORT NOTED. RIGHT UPPER ARM PICC LINE PATENT AND INTACT, FLUSHES WELL. G TUBE INTACT, NO RESIDUAL NOTED. SHEPARD CATH INTACT WITH CLEAR URINE OUTPUT NOTED. KEPT PT CLEAN AND DRY, WILL TURN AND REPOSITION Q2H SCHEDULED. WILL CONTINUE TO MONITOR PT.
[2016-10-29 20:00] VITALS: BP 130/58
[2016-10-29] MEDS: SIMVASTATIN 20 MG TABLET NG SCH (21:55)
[2016-10-29 22:00] VITALS: BP 130/58
[2016-10-30] MEDS: AZTREONAM 1 G in IV NS 0.9% 100 ML IV SCH ×3 (05:30→22:26)
--- NOTE | 2016-10-30 07:30 | NUR ---
RN NOTES PT ASLEEP, BREATHING REGULAR AND UNLABORED, ON 2LPM O2 VIA NC AND TOLERATED WELL. VITAL SIGNS STABLE, AFEBRILE. NO SIGNS OF PAIN AND DISCOMFORT NOTED. NO EPISODE OF NAUSEA AND VOMITING. G TUBE FLUSHES WELL, DUE MEDS GIVEN VIA GT AND TOLERATED WELL. KEPT CLEAN AND DRY, TURNED AND REPOSITION SCHEDULED. SKIN CARE AND WOUND CARE DONE. NO SIGNIFICANT CHANGE IN CONDITION NOTED. ENDORSED TO MORNING RN FOR CONTINUITY OF CARE.
--- NOTE | 2016-10-30 07:46 | NUR ---
MS RN OPENING NOTE PATIENT IS ALERT AND ORIENTED 1-2. NO PAIN AT THIS TIME. NO SOB OR DISTRESS NOTED. CALL LIGHT WITHIN REACH. SAFETY MEASURES IMPLEMENTED. S/P PEG TUBE PLACEMENT DONE YESTERDAY 10/29/16. NO REDNESS OR SWELLING NOTED, NO DRAINAGE NOTED. AWAITING DIETARY CONSULT. WILL CONTINUE TO MONITOR
[2016-10-30 08:00] VITALS: BP 127/61
[2016-10-30 08:34] LABS: CALCIUM, SERUM 7.1 mg/dL (8.5-10.1); CARBON DIOXIDE 26 mmol/L (21-32); CHLORIDE 109 mmol/L (98-107); CREATININE 0.5 mg/dL (0.6-1.3); GLUCOSE 55 mg/dL (74-106); POTASSIUM 3.8 mmol/L (3.5-5.1); SODIUM SERUM 144 mmol/L (136-145); UREA NITROGEN, BLOOD 13 mg/dL (7-18)
[2016-10-30] MEDS: PANTOPRAZOLE 40 MG/PACK PACK NG SCH (08:39)
[2016-10-30] MEDS: BENEFIBER 4 GM 1 EA PACKET NG SCH ×3 (08:39→17:09)
[2016-10-30] MEDS: ASPIRIN 81 MG TAB.CHEW NG SCH (08:39)
[2016-10-30] MEDS: ATORVASTATIN 10 MG TABLET NG SCH (08:39)
[2016-10-30] MEDS: ASCORBIC ACID 500 MG TABLET NG SCH ×2 (08:41→17:09)
[2016-10-30] MEDS: CHOLECALCIFEROL 1,000 UNIT TABLET (VIT D3) NG SCH (08:41)
[2016-10-30] MEDS: AMLODIPINE BESYLATE 5 MG TABLET NG SCH (08:41)
[2016-10-30] MEDS: CARVEDILOL 3.125 MG TABLET NG SCH ×2 (08:41→22:27)
[2016-10-30] MEDS: CALCIUM CARB 250MG /VITAMIN D 1 UDTAB NG SCH (08:41)
[2016-10-30] MEDS: METHIMAZOLE (5MG) 5 MG TABLET NG SCH (08:41)
[2016-10-30] MEDS: HYDROGEL DRESSING 90 GM TUBE TP SCH (08:42)
[2016-10-30 09:23] LABS: BASOPHILS # (AUTO) 0.1 /CMM (0.0-0.2); BASOPHILS % (AUTO) 0.4 % (0.0-2.0); EOSINOPHILS # (AUTO) 0.3 /CMM (0.0-0.7); EOSINOPHILS % (AUTO) 2.4 % (0.0-6.0); HEMATOCRIT 28 % (33-45); HEMOGLOBIN 8.9 g/dL (11.5-14.8); LYMPHOCYTES # (AUTO) 2.2 /CMM (0.8-4.8); LYMPHOCYTES % (AUTO) 18.2 % (20.0-44.0); MEAN CORPUSCULAR HEMOGLOBIN 28 PG (26.0-33.0); MEAN CORPUSCULAR HGB CONC 32 g/dl (31.0-36.0); MEAN CORPUSCULAR VOLUME 85 fL (82-100); MONOCYTES # (AUTO) 1.2 /CMM (0.1-1.30); MONOCYTES % (AUTO) 9.8 % (2.0-12.0); NEUTROPHILS # (AUTO) 8.4 /CMM (1.8-8.9); NEUTROPHILS % (AUTO) 69.2 % (43.0-81.0); PLATELET COUNT (AUTO) 263 /CMM (150-450); RDW COEFFICIENT OF VARIATION 16.5 (11.5-15.0); RED BLOOD CELL COUNT(AUTO) 3.23 MIL/uL (4.0-5.2); WHITE BLOOD COUNT (AUTO) 12.1 K/uL (4.3-11.0)
[2016-10-30 16:00] VITALS: BP 131/71
[2016-10-30] MEDS: GLYTROL 1,000 ML BAG GT PRN (17:09)
--- NOTE | 2016-10-30 18:50 | NUR ---
MS RN CLOSING NOTE PATIENT IS ALERT AND ORIENTED x1. NO FACIAL GRIMACING NOTED FOR PAIN. NO SOB OR DISTRESS NOTED. CALL LIGHT WITHIN REACH AT ALL TIMES. SAFETY MEASURES IMPLEMENTED. ALL DUE MEDICATIONS GIVEN ORDERED. G-TUBE INTACT AND PATENT, NO REDNESS A LITTLE DISCHARGE. SHEPARD CATHETER IN PLACE, CLEAR NO SEDIMENT NOTED. WOUND TREATMENT DONE. G-TUBE FEEDING RUNNING AT 20 ML/HR GOAL TO BE 60. TOLERATING WELL. POSSIBLE WOUND DEBRIDEMENT TOMORROW. WILL ENDORSE TO NATIONAL SALES CONSULTANT NURSE
[2016-10-30 20:00] VITALS: BP 146/62
--- NOTE | 2016-10-30 20:00 | NUR ---
RN NOTES RECEIVED PATIENT IN BED, ALERT AND AWAKE, ABLE TO ACKNOWLEDGE RN'S PRESENCE BY RESPONDING TO VERBAL STIMULATION, KEPT HOB ELEVATED, NO SOB, NO RESPIRATORY DISTRESS, ON 2LPM VIA NC, SPO2 98%, NOT IN APPARENT PAIN, NO FACIAL GRIMACING, NO RESTLESSNESS. ON ASPIRATION PRECAUTION, PEG TUBE INFUSING WELL AND TOLERATED WELL, NO ABDOMINAL DISTENTION, AUSCULTATED, NO RESIDUAL, FLUSHED. PEG TUBE SITE HAS SCANT BLEEDING, CLEANSED WITH NS AND SECURED WITH DRESSING. MIDLINE TO RIGHT UPPER ARM IS PATENT AND FLUSHED. BILATERAL UPPER EXTREMITIES CONTRACTED. SHEPARD CATHETER DRAINING WELL OF YELLOW URINE. REPOSITIONED FOR COMFORT, CALL LIGHT WITHIN REACH.
[2016-10-30 20:38] VITALS: BP 146/62
--- NOTE | 2016-10-30 22:10 | NUR ---
RN NOTES MONITORING PEG TUBE FEEDING. CHECKED RESIDUAL, ZERO RESIDUAL, INCREASED FEEDING TO 30 ML/HR. WILL CONTINUE TO MONITOR. GT FEEDING GOAL IS 60 CC/HR TOLERATED.
[2016-10-30] MEDS: SIMVASTATIN 20 MG TABLET NG SCH (22:28)
--- NOTE | 2016-10-31 | NUR ---
RN NOTES RECHECKED RESIDUAL, REMAINED 0, NO ABDOMINAL DISTENTION, NO VOMITING, INCREASED RATE TO 40 CC/HR. GOAL IS 60 CC/HR, WILL CONTINUE TO MONITOR.
[2016-10-31 00:06] VITALS: BP 117/58
[2016-10-31] MEDS: AZTREONAM 1 G in IV NS 0.9% 100 ML IV SCH ×3 (04:10→20:07)
--- NOTE | 2016-10-31 05:30 | NUR ---
RN NOTES NOTED RED DISCOLORATION TO RIGHT SIDE OF CHEEK ABOUT 2 CM. PHOTO TAKEN.
--- NOTE | 2016-10-31 06:52 | NUR ---
RN NOTES PATIENT IS NON-VERBAL, AROUSEABLE BY VOICE AND TOUCH, NO SOB, ON 2LPM VIA NC, NOT IN APPARENT DISTRESS, NO FACIAL GRIMACING, NO RESTLESSNESS, GANESH MIDLINE NEEDS REPOSITIONING TO BE ABLE TO FLUSH, PATIENT IS CONTRACTED TO UPPER EXTREMITIES. GT FEEDING IS TOLERATED AT 50 CC/HR, RESIDUAL IS 30 CC, NO ABDOMINAL DISTENTION, NO VOMITING, KEPT HOB ELEVATED, SHEPARD CATHETER IS DRAINING YELLOW URINE, REPOSITIONED FOR COMFORT, WOUND CARE RENDERED, NEEDS ATTENDED,CALL LIGHT WITHIN REACH.
[2016-10-31 07:33] LABS: CARBON DIOXIDE 26 mmol/L (21-32); CHLORIDE 107 mmol/L (98-107); CREATININE 0.6 mg/dL (0.6-1.3); GLUCOSE 178 mg/dL (74-106); POTASSIUM 3.9 mmol/L (3.5-5.1); SODIUM SERUM 140 mmol/L (136-145); UREA NITROGEN, BLOOD 11 mg/dL (7-18)
--- NOTE | 2016-10-31 07:38 | NUR ---
AM RN NOTE Received patient lying in her bed with eyes closed. On O2 2L/min via NC. No SOB noted resp even and non-labored. HOB elevated. Continue on GT feeding @ 60ml/hr, tolerated well. Midline on GANESH intact and patent. F/C intact and draining yellow colored urine. Will continue to monitor.
[2016-10-31 08:00] VITALS: BP 112/58
[2016-10-31] MEDS: BENEFIBER 4 GM 1 EA PACKET NG SCH ×3 (08:21→17:12)
[2016-10-31] MEDS: PANTOPRAZOLE 40 MG/PACK PACK NG SCH (08:21)
[2016-10-31] MEDS: HYDROGEL DRESSING 90 GM TUBE TP SCH (08:21)
[2016-10-31] MEDS: METHIMAZOLE (5MG) 5 MG TABLET NG SCH (08:22)
[2016-10-31] MEDS: ATORVASTATIN 10 MG TABLET NG SCH (08:22)
[2016-10-31] MEDS: ASCORBIC ACID 500 MG TABLET NG SCH ×2 (08:22→17:13)
[2016-10-31] MEDS: CALCIUM CARB 250MG /VITAMIN D 1 UDTAB NG SCH (08:22)
[2016-10-31] MEDS: CHOLECALCIFEROL 1,000 UNIT TABLET (VIT D3) NG SCH (08:22)
[2016-10-31] MEDS: ASPIRIN 81 MG TAB.CHEW NG SCH (08:22)
[2016-10-31] MEDS: AMLODIPINE BESYLATE 5 MG TABLET NG SCH (08:22)
[2016-10-31] MEDS: CARVEDILOL 3.125 MG TABLET NG SCH ×2 (08:23→20:31)
--- NOTE | 2016-10-31 08:30 | NUR ---
AM RN NOTE AM meds given as ordered, GT placement checked and 10ml residual noted. Continue on GT feeding as ordered.
--- NOTE | 2016-10-31 09:51 | NUR ---
AM RN NOTE Discontinue water flushes q 6hrs per Alex TAPE CONTROL SKIN OR SPAR MILL OPERATOR order noted and carried out.
[2016-10-31] MEDS ORDERED: LIDOCAINE 1%-EPI 1:100,000 20 ML VIAL TP ONE (11:30)
[2016-10-31] MEDS ORDERED: LIDOCAINE 2%-EPI 1:100,000 30 ML VIAL TP ONE (11:30)
[2016-10-31] MEDS ORDERED: SILVER NITRATE APPLICATOR 1 EA BOX TP SCH (11:30)
--- NOTE | 2016-10-31 11:48 | NUR ---
AM RN NOTE Sacral wound debridement done by Pinky (Wound RUG RENOVATOR).
--- NOTE | 2016-10-31 13:00 | NUR ---
AM RN NOTE Noon meds given as ordered and 5ml residual noted. Continue on feeding as ordered
[2016-10-31 16:00] VITALS: BP 116/61
[2016-10-31] MEDS: GLYTROL 1,000 ML BAG GT PRN (18:21)
--- NOTE | 2016-10-31 18:37 | NUR ---
AM RN NOTE Patient resting in her bed, no acute distress noted. No facial grimacing noted. Continue on glytrol feeding @ 60ml/hr as ordered, tolerated well. Residual 5ml when feeding bag changed. HOB elevated 45 degree. GT site intact, no discharge noted. F/C intact and patent. Will endorse care to next shift.
--- NOTE | 2016-10-31 19:35 | NUR ---
ms/rn opening notes patient in bed, able to open eyes, no s/s of sob or discomfort. no grimace, and no guarding but patient stiff. skin warm to touch. on gtube feeding , will monitor for any residuals. with yusuf w/ noted urine output. GANESH midline , patect, dressing intact. will provide and continue care. s/p wound debridement done today and monitor. call lights within reach.
[2016-10-31 20:00] VITALS: BP 113/53
[2016-10-31] MEDS: SIMVASTATIN 20 MG TABLET NG SCH (21:37)
[2016-11-01] MEDS: AZTREONAM 1 G in IV NS 0.9% 100 ML IV SCH ×2 (04:00→13:18)
[2016-11-01 06:44] LABS: CALCIUM, SERUM 6.7 mg/dL (8.5-10.1); CARBON DIOXIDE 27 mmol/L (21-32); CHLORIDE 108 mmol/L (98-107); CREATININE 0.5 mg/dL (0.6-1.3); GLUCOSE 166 mg/dL (74-106); POTASSIUM 3.7 mmol/L (3.5-5.1); SODIUM SERUM 141 mmol/L (136-145); UREA NITROGEN, BLOOD 8 mg/dL (7-18)
--- NOTE | 2016-11-01 07:00 | NUR ---
ms/rn closing notes patient in bed, alert, oriented x1. can open eyes, no s.s of discomfort, require reposition and extensive assistance at all times. 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 on gtube feeding w/ no residuals. yusuf w/ urine output. will endorse to am rn regarding plan of care.
[2016-11-01 08:00] VITALS: BP 114/58
[2016-11-01 09:00] VITALS: BP 114/58
[2016-11-01] MEDS: AMLODIPINE BESYLATE 5 MG TABLET NG SCH (09:00)
[2016-11-01] MEDS: CARVEDILOL 3.125 MG TABLET NG SCH (09:00)
--- NOTE | 2016-11-01 09:03 | NUR ---
RN OPENING NOTES PATIENT RESTING QUIETLY IN BED WITH EYES OPEN. PATIENT AOX1. ALL EXTREMITIES CONTRACTED. PATIENT O2 SAT IS ADEQUATE AT 100% ON RA. NO S/S OF ACUTE DISTRESS. NO S/S OF SOB. PATIENT ON GTUBE FEEDING GLYTROL @60ML/HR . PATIENT TOLERATING FEEDING WELL. NO RESIDUALS NOTED. GTUBE PLACEMENT CONFIRMED. PATIENT EXPECTED TO RETURN TO [facility] TODAY. WILL FOLLOW UP. BED LOCKED IN THE LOWEST POSITION WITH SIDE RAILS UPX2. CALL LIGHT WITHIN REACH OF PATIENT. WILL CONTINUE TO MONITOR AND ASSESS PATIENT.
[2016-11-01] MEDS: CALCIUM CARB 250MG /VITAMIN D 1 UDTAB NG SCH (09:12)
[2016-11-01] MEDS: BENEFIBER 4 GM 1 EA PACKET NG SCH ×2 (09:13→13:18)
[2016-11-01] MEDS: METHIMAZOLE (5MG) 5 MG TABLET NG SCH (09:13)
[2016-11-01] MEDS: ATORVASTATIN 10 MG TABLET NG SCH (09:13)
[2016-11-01] MEDS: HYDROGEL DRESSING 90 GM TUBE TP SCH (09:13)
[2016-11-01] MEDS: CHOLECALCIFEROL 1,000 UNIT TABLET (VIT D3) NG SCH (09:13)
[2016-11-01] MEDS: ASCORBIC ACID 500 MG TABLET NG SCH (09:13)
[2016-11-01] MEDS: PANTOPRAZOLE 40 MG/PACK PACK NG SCH (09:13)
[2016-11-01] MEDS: ASPIRIN 81 MG TAB.CHEW NG SCH (09:13)
--- NOTE | 2016-11-01 09:15 | NUR ---
RN NOTES HELD PATIENT BP MEDS COREG AND NORVASC. PATIENT BP 114/58 HR 70. WILL CONTINUE TO MONITOR ANS REASSESS PATIENT.
--- NOTE | 2016-11-01 13:02 | NUR ---
RN MS NOTES PT IN BED, RESTING, NO SIGN OF PAIN OR DISTRESS, PT FOR DISHARGE BACK TO [facility], REPORT GIVEN TO ADMITTING NURSE ROMERO, DISCHARGE AND MEDICATION INSTRUCTIONS PROVIDED, VERBALIZED UNDERSTANDING, PT'S FAMILY INFORMED, SPOKE WITH PT'S DAUGHTER JAM, SCHEDULED [employer] TIME IS 2PM.
--- NOTE | 2016-11-01 15:30 | NUR ---
RN CLOSING NOTES PT IN BED, RESTING, NO SIGN OF PAIN OR DISTRESS, PT FOR DISHARGE BACK TO [facility] VIA AMBULANCE. PATIENT D/C'D IN STABLE CONDITION. REPORT GIVEN TO ADMITTING NURSE ROMERO, DISCHARGE AND MEDICATION INSTRUCTIONS PROVIDED, VERBALIZED UNDERSTANDING, PT'S FAMILY INFORMED. FOLLOW UP PCP. IN THE EVENT OF AN EMERGENCY RETURN TO EMERGENCY ROOM. ALL NEEDS MET DURING SHIFT. ALL MEDS GIVEN UNLESS INAPPROPRIATE.
== END 2016-11-01 15:30 | DRG 853 ==
LOC: ER 20:51 → MED 21:32
PROVIDERS: ADMIT Nurse Practitioner Acute Care; ATTEND Nurse Practitioner Acute Care
PROC: 05H933Z Insertion of Infusion Device into Right Brachial Vein, Percutaneous Approach (ICD-10-PCS; 2016-10-26)
PROC: 0DH63UZ Insertion of Feeding Device into Stomach, Percutaneous Approach (ICD-10-PCS; principal; 2016-10-29 09:45)
PROC: 0QB10ZZ Excision of Sacrum, Open Approach (ICD-10-PCS; 2016-10-31)
DX: A41.9 Sepsis, unspecified organism (principal); G93.41 Metabolic encephalopathy; J18.9 Pneumonia, unspecified organism; L89.154 Pressure ulcer of sacral region, stage 4; R53.2 Functional quadriplegia; E43 Unspecified severe protein-calorie malnutrition; E87.0 Hyperosmolality and hypernatremia; N39.0 Urinary tract infection, site not specified; Z68.1 Body mass index [BMI] 19.9 or less, adult; N17.9 Acute kidney failure, unspecified; M48.56XA Collapsed vertebra, not elsewhere classified, lumbar region, initial encounter for fracture; R64 Cachexia; D72.829 Elevated white blood cell count, unspecified; E86.9 Volume depletion, unspecified; R13.10 Dysphagia, unspecified; I25.10 Atherosclerotic heart disease of native coronary artery without angina pectoris; K27.9 Peptic ulcer, site unspecified, unspecified as acute or chronic, without hemorrhage or perforation; K21.9 Gastro-esophageal reflux disease without esophagitis; E05.90 Thyrotoxicosis, unspecified without thyrotoxic crisis or storm; M19.90 Unspecified osteoarthritis, unspecified site; M81.0 Age-related osteoporosis without current pathological fracture; R91.1 Solitary pulmonary nodule; Z88.0 Allergy status to penicillin; Z96.649 Presence of unspecified artificial hip joint; Z96.659 Presence of unspecified artificial knee joint; E87.8 Other disorders of electrolyte and fluid balance, not elsewhere classified; F03.90 Unspecified dementia, unspecified severity, without behavioral disturbance, psychotic disturbance, mood disturbance, and anxiety; Z74.01 Bed confinement status; R62.7 Adult failure to thrive; I10 Essential (primary) hypertension; B96.89 Other specified bacterial agents as the cause of diseases classified elsewhere; N63 Unspecified lump in breast; E83.41 Hypermagnesemia; M06.9 Rheumatoid arthritis, unspecified; R53.81 Other malaise; M62.84 Sarcopenia; Z66 Do not resuscitate; D72.825 Bandemia; R16.0 Hepatomegaly, not elsewhere classified; E87.6 Hypokalemia; D63.8 Anemia in other chronic diseases classified elsewhere; E78.5 Hyperlipidemia, unspecified
CPT/HCPCS: 36415; 36569; 43246; 70450-TC; 71010-TC; 71250-TC; 72192-TC; 74150-TC; 80048-TC; 80061-TC; 80076-TC; 80202-TC; 81000-TC; 82140-TC; 83605-TC; 83690-TC; 83735-TC; 83935-TC; 84100-TC; 84300-TC; 84443-TC; 85025-TC; 85610-TC; 85730-TC; 86850-TC; 87040-TC; 87081-TC; 87086-TC; 92526; 92611-TC; 94799-TC; A4606; A6248; A6253; A6402; A6403; A6407; J2704; J3370; J3490; J7030; J7040; J7050; J7060; J7070; Z7610